=== PATIENT | female | born 1960 | race Caucasian/White ===

== ENCOUNTER → 2018-12-01 | Outpatient (CLI) | payer BC ==
[~2018-12-01] VITALS: Ht 172.7 cm; Wt 61.7 kg
[~2018-12-01] MED LIST: ASPIR 8181 MG PO; BACTRIM DS TAB1 EACH PO; CARVEDILOL3.125 MG PO; CORLANOR7.5 MG PO; CRESTOR10 MG PO; NITROGLYCERIN0.4 MG SUBLING; SYNTHROID75 MCG PO
[2018-12-01 13:11] VITALS: BP 138/78
[2018-12-01 13:39] LABS: HEMOGLOBIN 12.4 gm/dL (12.0-15.0); MCH 30.8 pg (26.0-34.0); MCHC 33.5 g/dL (28.0-37.0); MCV 91.7 fL (80.0-100.0); MPV 11.2 fl. (7.2-11.1); RBC 4.03 mil/uL (4.20-5.00); RDW-CV 14.4 % (10.5-14.5); WBC 7.4 thou/uL (4.0-11.0)
[2018-12-01 13:44] LABS: CALCIUM 7.9 mg/dL (8.5-10.1); CREATININE 1.7 mg/dL (0.6-1.3); POTASSIUM 4.4 mmol/L (3.5-5.1)
[2018-12-01 13:46] LABS: APTT 26.8 Seconds (25.0-31.3); PROTIME 10.3 Seconds (9.20-11.50)
--- NOTE | 2018-12-01 17:06 | EKG ---
[place] [address] ELECTROCARDIOGRAM REPORT Name: ARCELIADANK L [facility] [id number] Admission: 12/01/18 Attend Phys: Brady Westfall MD Discharge: Date of : 62 Report #: [id number] THIS REPORT FOR: //name// [facility] Test Date: 2018-12-01 Test Time: 13:41:09 Pat Name: DANK PANIAGUA Department: Room: Gender: F Real Estate Clerk: : 1960 Requested By: Brady Westfall Order Number: [id number] Jelani MD: Brady Westfall Measurements Intervals [place] Rate: 74 P: 111 NC: 141 QRS: -37 QRSD: 120 T: 38 QT: 458 QTc: 509 Interpretive Statements Atrial-sensed ventricular-paced rhythm No further analysis attempted due to paced rhythm No previous ECG available for comparison Electronically Signed On 12-01-2018 17:05:51 CDT by Brady Westfall [email or web address] <ELECTRONICALLY SIGNED> By: Brady Westfall MD, [facility] 12/01/18 1705 1341 40 Brady Westfall MD, FACC /EPI
--- NOTE | 2018-12-08 15:58 | CARD ---
[address] [address] CARDIAC CATH REPORT Name: DANK PANIAGUA [id number] Admission: 12/01/18 Attend Phys: Brady Westfall MD Discharge: Date of : 62 Report #: [id number] THIS REPORT FOR: //name// ADDENDUM APPROVED REPORT Study performed: 12/01/2018 13:45:13 Patient Status: Out-Patient Room #: Event Personnel: Rita Suarez RN RN, Brady Westfall Space Systems Operations Manager, Eliel Melgar (R) Monitor, Johnnie Bermudez SENIOR DIGITAL DESIGNER Scrub Exam: replace biventricular ICD generator. Indications: present biventricular ICD generator at elective replacement. The patient is a 58 year-old female with a history of ischemic cardiomyopathy and chronic left ventricular systolic dysfunction/heart failure. Intraoperative Conscious Sedation Sedation start time: 14:07 Case end Time: 14:24 Fentanyl 75 mcg Versed 3 mg Implanted Devices: Medtronic CRTD [id number] VIVA S LEANNE^DF 4 US, model # EMGN1M6, serial # [id number] BiVentrucular ICD/Pacing generator. Explanted Devices: Medtronic DURAL MECHANIC-D [id number] VIVA S US LEANNE/DF4, Model # YNLX9N5, Serial # [id number] BiVentrucular ICD/Pacing generator. Procedure After informed consent was obtained the area of the right chest was prepped and draped in sterile fashion. Local anesthesia was achieved with 1% lidocaine. After an initial incision was made over the existing generator the device was explanted using electrocautery and blunt dissection. The biventricular ICD generator was detached from the pacing ICD RV, LV and atrial leads. The pocket was then flushed with antibiotic solution. A new biventricular pacing ICD generator was attached to the pacing/ICD RV, LV and atrial leads. The device and redundant leads were then placed within the device pocket. The deep tissues were closed with interrupted stitches of 2-0 Vicryl. The skin incision was then closed with a single subcuticular stitch of 4-0 Vicryl. Several Steri-Strips were [place] [address] CARDIAC CATH REPORT Name: DANK PANIAGUA Room: [facility]#: [id number] Admission: 12/01/18 Attend Phys: Brady Westfall MD Discharge: Date of : 62 Report #: [id number] and a sterile Telfa dressing was then covered with a Tegaderm. Complications The patient tolerated the procedure well and there were no complications associated with the procedure. Conclusion 1. Successful replacement of a biventricular ICD pacing generator without complication. Recommendations 1. Follow-up site check in one week. 2. Follow-up device interrogation one month. <ELECTRONICALLY SIGNED> By: Brady eWstfall MD, FACC 12/08/18 1557 1557 1557Michaesuman Westfall MD, FACC /INF
== END | disposition home or self-care (01) ==
LOC: M.CL 12:56
PROVIDERS: Internal Medicine Cardiovascular Disease
DX: Z45.02 Encounter for adjustment and management of automatic implantable cardiac defibrillator (principal); I25.5 Ischemic cardiomyopathy; I50.22 Chronic systolic (congestive) heart failure; Z95.1 Presence of aortocoronary bypass graft; Z98.890 Other specified postprocedural states; Z79.82 Long term (current) use of aspirin; Z79.899 Other long term (current) drug therapy

== ENCOUNTER → 2019-06-01 | Outpatient (CLI) | payer BC ==
[~2019-06-01] VITALS: Ht 170.2 cm; Wt 62.1 kg
[2019-06-01 09:26] VITALS: BP 139/64
[2019-06-01 09:46] LABS: HEMOGLOBIN 12.5 gm/dL (12.0-15.0); MCH 31.1 pg (26.0-34.0); MCHC 33.9 g/dL (28.0-37.0); MCV 91.6 fL (80.0-100.0); MPV 11.8 fl. (7.2-11.1); RBC 4.03 mil/uL (4.20-5.00); RDW-CV 14.1 % (10.5-14.5); WBC 7.3 thou/uL (4.0-11.0)
[2019-06-01 09:52] LABS: CALCIUM 7.6 mg/dL (8.5-10.1); CREATININE 1.5 mg/dL (0.6-1.3); POTASSIUM 3.7 mmol/L (3.5-5.1)
[2019-06-01 09:55] LABS: PROTIME 10.2 Seconds (9.20-11.50)
[2019-06-01 12:00] VITALS: BP 129/53
[2019-06-01 12:01] VITALS: BP 129/53
[2019-06-01 12:30] VITALS: BP 111/47
[2019-06-01 13:30] VITALS: BP 118/47
--- NOTE | 2019-06-01 17:28 | EKG ---
[place] [address] ELECTROCARDIOGRAM REPORT Name: DANK PANIAGUA Room: [facility]#: [id number] Admission: 06/01/19 Attend Phys: Brady Westfall MD Discharge: Date of : 62 Report #: [id number] THIS REPORT FOR: //name// [facility] Test Date: 2019-06-01 Test Time: 09:27:02 Pat Name: DANK PANIAGUA Department: Room: Gender: F Internal Consultant: : 1960 Requested By: Brady Westfall Order Number: [id number] Jelani MD: Brady Westfall Measurements Intervals [place] Rate: 75 P: 86 DC: 152 QRS: 168 QRSD: 100 T: 126 QT: 439 QTc: 491 Interpretive Statements Atrial-sensed ventricular-paced rhythm No further analysis attempted due to paced rhythm Baseline wander in lead(s) I,II,aVR Compared to ECG 12/01/2018 13:41:09 No significant changes Electronically Signed On 06-01-2019 17:28:14 THIRD RAIL INSTALLER by Brady Westfall [email or web address] <ELECTRONICALLY SIGNED> By: Brady Westfall MD, FACC 06/01/19 1728 0927 0927 Brady Westfall MD, FAC /EPI
--- NOTE | 2019-06-01 18:01 | CARD ---
[address] [address] CARDIAC CATH REPORT Name: DANK PANIAGUA [id number] Admission: 06/01/19 Attend Phys: Brady Westfall MD Discharge: Date of : 62 Report #: [id number] THIS REPORT FOR: //name// APPROVED REPORT Study performed: 06/01/2019 09:39:50 Event Personnel: Brady Westfall Edger Hand, Jeannette Verduzco RN Spout Worker, Patrica Maher RTR Scrub, Justin Diaz WASHHOUSE HAND Monitor The patient is a 59 year-old female with a history of . Intraoperative Conscious Sedation Fentanyl 125 mcg Bi-V ICD Repostion Procedure After informed consent was obtained the area of the right chest was prepped and draped in sterile fashion. Local anesthesia was achieved with 1% lidocaine. Next an incision was made and the device pocket accessed with electrocautery and blunt dissection. The pacing ICD lead and tunneled atrial lead were dissected out from the device pocket. The LV lead was inadvertently cut in the process of freeing up the leads and was therefore removed. Once the device was freed up in the pocket the device pocket was extended superiorly. The device was fixed within the pocket using 0 silk suture. The lower portion of the device pocket was then closed with 0 silk suture. The pocket was flushed with antibiotic solution before during and after repositioning of the ICD. The LV lead port was closed with a for closure device. The deep tissues were then closed with interrupted stitches of 2-0 Vicryl. The skin incision was then closed with a single subcuticular stitch of 4-0 Vicryl. Several Steri-Strips were placed across the incision and a sterile Telfa dressing covered with a Tegaderm. The patient tolerated the procedure well without complication. The explanted LV lead was a model #4196-88, serial number [id number] lead. The implanted LV port CL was a Medtronic, model #6725, serial number [id number] port occluder. Conclusion 1. Relocation of the patient's biventricular [place] [address] CARDIAC CATH REPORT Name: RAYMOND PANIAGUAORAKayleigh Bañuelos Room[facility]#: [id number] Admission: 06/01/19 Attend Phys: Brady Westfall MD Discharge: Date of : 62 Report #: [id number] leads. 2. Inadvertent interruption of the LV lead. Lead subsequently removed. Recommendations 1. Follow-up site check in one week. 2. Follow-up echocardiogram one month. 3. Follow-up office is a 2-3 months. <ELECTRONICALLY SIGNED> By: Brady Westfall MD, [facility] 06/01/19 180 00 00Brady Westfall MD, FACC /INF
== END | disposition home or self-care (01) ==
LOC: M.CL 08:55
PROVIDERS: Internal Medicine Cardiovascular Disease
DX: Z45.02 Encounter for adjustment and management of automatic implantable cardiac defibrillator (principal); I42.9 Cardiomyopathy, unspecified; I50.9 Heart failure, unspecified; Z98.890 Other specified postprocedural states; Z95.1 Presence of aortocoronary bypass graft; Z85.71 Personal history of Hodgkin lymphoma; Z79.82 Long term (current) use of aspirin; Z79.899 Other long term (current) drug therapy

== ENCOUNTER 2019-08-28 09:10 | Inpatient (IN) | payer BC ==
[~2019-08-28] VITALS: Ht 170.2 cm; Wt 64.1 kg
--- NOTE | ~2019-08-28 | EKG ---
[place] [address] ELECTROCARDIOGRAM REPORT Name: ARCELIARAYMONDDANK L Room: [place] [address] ADM IN ..#: [id number] Admission: 08/28/19 Attend Phys: Sindi seymour Sa Discharge: Date of : 62 Date of Service: 08/28/19 0924 Report #: [id number] THIS REPORT FOR: cc: Arias Marshall MD, William MD Epiphany, Epiphany MD ~ THIS REPORT FOR: //name// [facility] Test Date: 2019-08-28 Test Time: 09:24:08 Pat Name: DANK PANIAGUA Department: Room: [facility] Gender: F Post Closing Specialist: JD : 1960 Requested By: Carlos Zarco Order Number: [id number] MD: Measurements Intervals [place] Rate: 77 P: 104 UT: 215 QRS: -90 QRSD: 124 T: 107 QT: 441 QTc: 500 Interpretive Statements Atrial-sensed ventricular-paced rhythm No further analysis attempted due to paced rhythm Compared to ECG 06/01/2019 09:27:02 No significant changes [email or web address] By: 3 3 Epiphany Epiphany, /EDEN
--- NOTE | ~2019-08-28 | EKG ---
[place] [address] ELECTROCARDIOGRAM REPORT Name: DANK PANIAGUA Room: [place] [address] ADM IN M.R.#: [id number] Admission: 08/28/19 Attend Phys: Sindi seymour Sa Discharge: Date of : 62 Date of Service: 08/31/19 0504 Report #: [id number] THIS REPORT FOR: cc: Arias Marshall MD, William MD Epiphany, Epiphany MD ~ THIS REPORT FOR: //name// [facility] Test Date: 2019-08-31 Test Time: 05:04:41 Pat Name: DANK PANIAGUA Department: Room: [place] [address] Gender: F Technical Clerk: TIARA : 1960 Requested By: Bogdan Barboza Order Number: [id number] Jelani MD: Measurements Intervals [place] Rate: 84 P: 65 WV: 210 QRS: 218 QRSD: 135 T: 77 QT: 441 QTc: 522 Interpretive Statements Atrial-sensed ventricular-paced rhythm No further analysis attempted due to paced rhythm No previous ECG available for comparison [email or web address] By: 0504 0504 Epiphany Epiphany, /EDEN
[2019-08-28 09:19] VITALS: BP 147/80
[2019-08-28 09:48] LABS: HEMOGLOBIN 12.6 gm/dL (12.0-15.0); MCH 30.8 pg (26.0-34.0); MCHC 33.9 g/dL (28.0-37.0); MCV 90.7 fL (80.0-100.0)
[2019-08-28 09:52] LABS: ABSOLUTE EOSINOPHILS 0.2 thou/uL (0.0-0.7); ABSOLUTE LYMPHOCYTES 2.2 thou/uL (0.8-5.3); ABSOLUTE MONOCYTES 1.1 thou/uL (0.0-1.2); ABSOLUTE NEUTROPHILS 3.9 thou/uL (1.6-8.1); BASOPHILS 0.2 %; EOSINOPHILS 2.6 %; HEMATOCRIT 37.2 % (37.0-47.0); LYMPHOCYTES 29.1 %; MONOCYTES 15.5 %; MPV 11.2 fl. (7.2-11.1); NUCLEATED RBCS 0 /100WBC; PLATELET COUNT* 189 thou/uL (150-400); POLYS 52.6 %; RDW-CV 14.7 % (10.5-14.5); WBC 7.4 thou/uL (4.0-11.0)
[2019-08-28 09:59] LABS: APTT 26.6 Seconds (25.0-31.3); CALCIUM 7.1 mg/dL (8.5-10.1); CREATININE 1.2 mg/dL (0.6-1.3); POTASSIUM 3.8 mmol/L (3.5-5.1); PROTIME 10.7 Seconds (9.20-11.50)
[2019-08-28 10:05] LABS: INFLUENZA A ANTIGEN Negative (Negative); INFLUENZA B ANTIGEN Negative (Negative)
[2019-08-28 10:12] LABS: ALBUMIN 3.9 g/dL (3.4-5.0); CK-MB MASS 0.9 ng/mL (<0.5-3.6); MAGNESIUM 1.8 mg/dL (1.8-2.4); TOTAL BILIRUBIN 1.6 mg/dL (<0.1-1.0); TOTAL PROTEIN 7.7 g/dL (6.4-8.2)
[2019-08-28 10:52] LABS: PLATELET ESTIMATE ADEQUATE
[2019-08-28 10:54] LABS: LARGE PLATELETS OCCASIONAL
[2019-08-28 10:55] LABS: ANISOCYTOSIS Occasional
[2019-08-28 11:30] LABS: BE 0.7 mmol/L (-2 to +3); PCO2 37.8 mmHg (35.0-45.0); PO2 77.3 mmHg (75.0-100.0); pH 7.434 (7.340-7.450)
[2019-08-28 14:43] VITALS: BP 118/50
[2019-08-28 16:00] VITALS: BP 124/58
[2019-08-28 20:20] VITALS: BP 108/57
[2019-08-29] VITALS: BP 104/51; BP 114/83
[2019-08-29 04:00] VITALS: BP 112/61
[2019-08-29 05:33] LABS: MCH 30.3 pg (26.0-34.0); MCHC 33.3 g/dL (28.0-37.0); MCV 91.1 fL (80.0-100.0); MPV 11.7 fl. (7.2-11.1); RBC 3.95 mil/uL (4.20-5.00); RDW-CV 14.6 % (10.5-14.5); WBC 9.6 thou/uL (4.0-11.0)
[2019-08-29 05:46] LABS: ALBUMIN 3.5 g/dL (3.4-5.0); CALCIUM 6.4 mg/dL (8.5-10.1); CREATININE 1.4 mg/dL (0.6-1.3); POTASSIUM 3.6 mmol/L (3.5-5.1); TOTAL BILIRUBIN 1.4 mg/dL (<0.1-1.0); TOTAL PROTEIN 7.2 g/dL (6.4-8.2)
[2019-08-29 08:00] VITALS: BP 113/62
[2019-08-29 12:00] VITALS: BP 113/58
[2019-08-29 16:00] VITALS: BP 130/71
[2019-08-29 20:20] VITALS: BP 126/66
[2019-08-30 00:55] VITALS: BP 120/64
[2019-08-30 04:00] VITALS: BP 122/63
[2019-08-30 05:55] LABS: CREATININE 1.3 mg/dL (0.6-1.3); POTASSIUM 3.9 mmol/L (3.5-5.1)
[2019-08-30 06:00] LABS: CALCIUM 5.8 mg/dL (8.5-10.1)
[2019-08-30 08:00] VITALS: BP 134/76
[2019-08-30 14:32] VITALS: BP 145/63
[2019-08-30 16:00] VITALS: BP 149/81
--- NOTE | 2019-08-30 16:33 | 2DMMODE ---
[place] [address] 2 D/M-MODE ECHOCARDIOGRAM Name: ALEXIS PANIAGUAKayleigh Bañuelos Room: [place] [address] ADM IN Gayla.#: [id number] Admission: 08/28/19 Attend Phys: Sindi seymour Sa Discharge: Date of : 62 Date of Service: 08/30/19 1632 Report #: [id number] THIS REPORT FOR: cc: Arias Marshall MD, William MD Blick,Fred Banegas MD [facility] ~ THIS REPORT FOR: //name// APPROVED REPORT Study performed: 08/30/2019 11:54:32 EXAM: Comprehensive 2D, Doppler, and color-flow Echocardiogram Patient Location: In-Patient Room #: [facility] Status: routine BSA: 1.72 HR: 76 bpm BP: 134/76 mmHg Rhythm: NSR Other Information Study Quality: Good Indications Dyspnea 2D Dimensions IVSd: 9.46 (7-11mm) LVOT Diam: 18.94 (18-24mm) LVDd: 34.89 mm PWd: 8.65 (7-11mm) Ascending Ao: 28.23 (22-36mm) LVDs: 21.98 (25-40mm) Aortic Root: 30.40 mm Volumes Left Atrial Volume (Systole) LA ESV Index: 19.90 mL/m2 Aortic Valve AoV Peak Chin.: 1.00 m/s AO Peak Gr.: 3.99 mmHg LVOT Max P.25 mmHg AO Mean Gr.: 2.62 mmHg LVOT Mean P.65 mmHg LVOT Max V: 0.56 m/s AO V2 VTI: 22.86 cm LVOT Mean V: 0.37 m/[place] [address] 2 D/M-MODE ECHOCARDIOGRAM Name: DANK PANIAGUA Room: [address] IN M.R.#: [id number] Admission: 08/28/19 Attend Phys: Sindi seymour Sa Discharge: Date of : 62 Date of Service: 08/30/19 1632 Report #: [id number] FADY (VTI): 1.63 cm2 LVOT V1 VTI: 13.23 cm Mitral Valve E/A Ratio: 1.89 MV Decel. Time: 167.79 ms MV E Max Chin.: 1.45 m/s MV PHT: 48.66 ms MVA (PHT): 4.52 cm2 TDI E/Lateral E': 14.50 E/Medial E': 14.50 Medial E' Chin.: 0.10 m/s Lateral E' Chin.: 0.10 m/s Pulmonary Valve PV Peak Chin.: 0.72 m/s PV Peak Gr.: 2.04 mmHg Tricuspid Valve RAP Estimate: 5.00 mmHg TR Peak Gr.: 26.57 mmHg RVSP: 31.00 mmHg PA Pressure: 31.00 mmHg Left Ventricle The left ventricle is normal size. There is normal LV segmental wall motion. There is normal left ventricular wall thickness. Left ventricular systolic function is normal. The left ventricular ejection fraction is within the normal range. LVEF is 60-65%. Grade IV - fixed restrictive diastolic dysfunction. Right Ventricle Right ventricle is mildly dilated. The right ventricular systolic function is normal. Pacemaker lead is present in the right ventricle. Atria The left atrium size is normal. The right atrium size is normal. Aortic Valve The aortic valve is normal in structure. No aortic regurgitation is present. There is no aortic valvular stenosis. Mitral Valve There is mitral annular calcification. Moderate mitral regurgitation. No evidence of mitral valve stenosis[place] [address] 2 D/M-MODE ECHOCARDIOGRAM Name: DANK PANIAGUA Room: [address] IN [facility]#: [id number] Admission: 08/28/19 Attend Phys: Sindi seymour Sa Discharge: Date of : 62 Date of Service: 08/30/19 1632 Report #: [id number] The tricuspid valve is normal in structure. Moderate tricuspid regurgitation. estimated pa pressure 40 mm Hg Pulmonic Valve The pulmonary valve is normal in structure. Mild pulmonic regurgitation. Great Vessels The aortic root is normal in size. IVC is normal in size and collapses >50% with inspiration. Pericardium There is no pericardial effusion. Left pleural effusion. <Conclusion> LVEF is 60-65%. Right ventricle is mildly dilated. Moderate mitral regurgitation. Moderate tricuspid regurgitation. estimated pa pressure 40 mm Hg Left pleural effusion. <ELECTRONICALLY SIGNED> By: Fred Figueroa MD, FACC 08/30/19 1632 163 1632 Fred Figueroa MD, FACC /INF
[2019-08-30 19:50] VITALS: BP 145/73
[2019-08-31] VITALS: BP 143/72
[2019-08-31 08:00] VITALS: BP 143/75
[2019-08-31 11:14] VITALS: BP 131/62
[2019-08-31 15:08] LABS: CHOLESTEROL 110 mg/dL (<200); HDL CHOLESTEROL 46 mg/dL (>40); LDL CHOLESTEROL 46 mg/dL (<100); TC:HDL 2.4 Ratio (Not establshd); TRIGLYCERIDE 90 mg/dL (<150); VLDL 18 mg/dL (<40)
[2019-08-31 15:10] LABS: SERUM ASSESSMENT Clear
[2019-08-31 15:42] VITALS: BP 146/79
[2019-08-31 20:00] VITALS: BP 140/74
[2019-09-01] VITALS: BP 152/74
[2019-09-01 04:00] VITALS: BP 144/76
[2019-09-01 08:00] VITALS: BP 129/75
[2019-09-01 11:50] VITALS: BP 130/71
[2019-09-01 15:01] LABS: CALCIUM 6.5 mg/dL (8.5-10.1); CREATININE 1.5 mg/dL (0.6-1.3); POTASSIUM 3.3 mmol/L (3.5-5.1)
[2019-09-01 16:00] VITALS: BP 130/68
[2019-09-01 20:00] VITALS: BP 143/79
[2019-09-02] VITALS: BP 123/72
[2019-09-02 04:00] VITALS: BP 150/77
[2019-09-02 04:40] LABS: HEMATOCRIT 34.7 % (37.0-47.0); HEMOGLOBIN 11.9 gm/dL (12.0-15.0); MCH 30.7 pg (26.0-34.0); MCHC 34.2 g/dL (28.0-37.0); MCV 89.8 fL (80.0-100.0); MPV 11.9 fl. (7.2-11.1); RBC 3.87 mil/uL (4.20-5.00); RDW-CV 14.2 % (10.5-14.5); WBC 10.5 thou/uL (4.0-11.0)
[2019-09-02 09:00] VITALS: BP 146/89
[2019-09-02 09:48] LABS: CALCIUM 6.2 mg/dL (8.5-10.1); CREATININE 1.3 mg/dL (0.6-1.3); POTASSIUM 3.6 mmol/L (3.5-5.1)
[2019-09-02 12:26] VITALS: BP 130/76
[2019-09-02 15:58] VITALS: BP 130/76
[2019-09-02] MEDS ORDERED: PREDNISONE 5 MG5 M1 PO (16:29)
[2019-09-02] MEDS ORDERED: COZAAR 25 MG TA25 M1 PO (16:31)
[2019-09-02] MEDS ORDERED: FUROSEMIDE 20 M20 MG PO (16:33)
[2019-09-02] MEDS ORDERED: KLOR-CON 1010 MEQ PO (16:35)
[2019-09-02] MEDS ORDERED: AZITHROMYCIN500 MG PO (16:39)
[2019-09-02] MEDS ORDERED: BUDESONIDE0.5 MG/2 M INH (16:44)
[2019-09-02] MEDS ORDERED: ACCUNEB SO1.25 MG/1 INH (16:46)
[2019-09-02] MEDS ORDERED: TUMS200 MG PO (17:02)
== END 2019-09-02 17:49 | disposition home or self-care (01) | DRG 291 ==
LOC: M.ERS 09:10 → M.TBA-ER 11:05 → M.2W 11:05
PROVIDERS: Family Medicine; Registered Nurse; ADMIT Family Medicine
DX: I13.0 Hypertensive heart and chronic kidney disease with heart failure and stage 1 through stage 4 chronic kidney disease, or unspecified chronic kidney disease (principal); J96.01 Acute respiratory failure with hypoxia; J12.9 Viral pneumonia, unspecified; I50.43 Acute on chronic combined systolic (congestive) and diastolic (congestive) heart failure; N17.9 Acute kidney failure, unspecified; E03.9 Hypothyroidism, unspecified; I25.5 Ischemic cardiomyopathy; N18.3 Chronic kidney disease, stage 3 (moderate); E83.51 Hypocalcemia; K64.5 Perianal venous thrombosis; E78.5 Hyperlipidemia, unspecified; I34.0 Nonrheumatic mitral (valve) insufficiency; Z95.1 Presence of aortocoronary bypass graft; Z95.810 Presence of automatic (implantable) cardiac defibrillator; Z79.899 Other long term (current) drug therapy

== ENCOUNTER → 2020-03-03 | Outpatient (CLI) | payer BC ==
[~2020-03-03] MED LIST changes: +ACCUNEB SO1.25 MG/1 INH; +AZITHROMYCIN500 MG PO; +BUDESONIDE0.5 MG/2 M INH; +COZAAR 25 MG TA25 M1 PO; +FUROSEMIDE 20 M20 MG PO; +KLOR-CON 1010 MEQ PO; +PREDNISONE 5 MG5 M1 PO; +TUMS200 MG PO
--- NOTE | 2020-03-03 18:40 | CARDNUC ---
[place] [address] CARDIAC NUCLEAR IMAGING REPORT Name: DANK PANIAGUA Room: [facility]#: [id number] Admission: 03/03/20 Attend Phys: Brady Westfall, Discharge: Date of : 62 Date of Service: 03/03/20 1839 Report #: [id number] THIS REPORT FOR: cc: Arias Marshall MD, William MD [place],Brady Mcconnell MD [facility] ~ APPROVED REPORT Study performed: 03/03/2020 13:16:48 Exam: Nuclear Stress Test Indication: Chest pain Patient Location: Out-Patient Stress Tech: Brooklyn Harmon Stress Nurse: Lorena Argueta RN Ht: 5 ft 8 in Wt: 132 lbs BSA: 1.71 m2 BMI: 20.06 Medical History Medical History: cancer, cardiomyopathy, completes heart block with ppm/icd, CAD s/p CABG, CAD s/p stent, HTN, Heart failure, Hyperlipidemia Medications: asa-81, carvedilol, losartan, rosuvastatin, corlandor Allergies: No known drug allergies Cardiac Risk Factors: Age, HTN, Hyperlipidemia Previous Cardiac Procedures: ICD, PCI,, CABG, PPM Exercise History: Physically active Meds Held (24 hrs): carvedilol Stress Test Details Stress Test: Pharmacologic stress testing performed using 0.4 mg of regadenoson per 5 mL given IV over 10 seconds. Reason for pharmacologic stress test: PPM. HR Resting HR: 77 bpm Max Heart Rate (APMHR): 162 bpm Max HR Achieved: 90 bpm Target HR (85% APMHR): 137 bpm % of APMHR: 55 Recovery HR: 88 bpm BP Resting BP: 120/82 [place] [address] CARDIAC NUCLEAR IMAGING REPORT Name: DANK PANIAGUA Room: [facility]#: [id number] Admission: 03/03/20 Attend Phys: Brady Westfall, Discharge: Date of : 62 Date of Service: 03/03/20 1839 Report #: [id number] Max BP: 116/46 mmHg ECG Resting ECG: Ventricular paced rhythm Stress ECG: Ventricular paced rhythm ST Change: None Arrhythmia: None Recovery ECG: Ventricular paced rhythm Recovery ST Change: None Recovery Arrhythmia: None Clinical Reason for Termination: Completed protocol The patient had symptoms of discomfort and pressure with Lexiscan infusion felt to be due to medication effect in light of nuclear imaging findings. Stress ECG Conclusion Baseline twelve-lead EKG shows ventricular pacing. EKGs obtained during and post Lexiscan infusion show ventricular pacing. No significant stress-induced arrhythmias were noted. NM EXAM: Myocardial Perfusion REST/STRESS Resting Data Rest SPECT myocardial perfusion imaging was performed in supine position 30 minutes following the intravenous injection of 9.2 mCi of Tc-99m Sestamibi. Time of rest injection: 11:50 The images were gated to evaluate regional wall motion and calculate left ventricular ejection fraction. Administration Route: IV Administration Site: Left AC Pharmacologic Stress Pharmacologic stress test was performed by injecting Regadenoson 0.4 mg IV push followed by the intravenous injection of 26.3 mCi of Tc-99m Sestamibi. Time of stress injection: 13:15 Administration Route: IV Administration Site: Left AC Heart Rate at time of stress injection: 84 bpm. Gated Stress SPECT was performed 45 minutes after stress injection. The images were gated to evaluate regional wall motion and calculate left ventricular [place] [address] CARDIAC NUCLEAR IMAGING REPORT Name: ERMIASANAMDANK Sarmad Room: [facility]#: [id number] Admission: 03/03/20 Attend Phys: Brady Westfall, Discharge: Date of : 62 Date of Service: 03/03/20 1839 Report #: [id number] Prone imaging was performed. Study Quality Study: Good Artifact: No artifact Study Data At rest, the left ventricular ejection fraction was 63%.. Post stress, the left ventricular ejection was 65%.. TID = 0.99. Perfusion Perfusion images obtained at rest and post Lexiscan stress showed uniform uptake of the radioisotope throughout the myocardium without defect. Wall Motion Global LV systolic function is preserved. There is a septal wall motion abnormality noted consistent with paced rhythm. Nuclear Conclusion ECG Findings: negative for ischemia Clinical Findings: non-diagnostic Nuclear Findings: negative for ischemia Exercise Capacity: not assessed Left Ventricular Function: Preserved Risk Study: low Perfusion study show no defect to suggest infarct or ischemia. Left ventricular systolic function is preserved. This is a low risk study. <Conclusion> Baseline twelve-lead EKG shows ventricular pacing. EKGs obtained during and post Lexiscan infusion show ventricular pacing. No significant stress-induced arrhythmias were noted. <ELECTRONICALLY SIGNED> By: Brady Westfall MD, FACC 03/03/201838 38 38 Brady Westfall MD, FACC /INF
== END ==
LOC: M.NUC 09:30
PROVIDERS: ATTEND Internal Medicine Cardiovascular Disease
DX: I20.0 Unstable angina (principal)

== ENCOUNTER → 2021-03-27 | Outpatient (CLI) | payer BC ==
[2021-03-27 15:38] LABS: ALBUMIN 4.3 g/dL (3.4-5.0); CALCIUM 7.9 mg/dL (8.5-10.1); CREATININE 1.8 mg/dL (0.6-1.3); POTASSIUM 4.1 mmol/L (3.5-5.1); TOTAL BILIRUBIN 1.8 mg/dL (<0.1-1.0); TOTAL PROTEIN 7.5 g/dL (6.4-8.2)
== END ==
LOC: M.LAB 15:05
PROVIDERS: ATTEND Registered Nurse
DX: I50.32 Chronic diastolic (congestive) heart failure (principal)